=== PATIENT | female | born 1935 | race Caucasian/White ===

== ENCOUNTER 2017-01-13 14:43 | Inpatient (IN) | payer MEDICARE, OTHER ==
[~2017-01-13] VITALS: Ht 157.5 cm; Wt 42.8 kg
[~2017-01-13 14:43] MED LIST: A20IH1 IH; ACET-2247 PO; ACET500I PO; ALBU2TAB42 PO; APIX2.5T PO; ASPI81 PO; AZIT250T6 PO; DSS100 PO; ETHA400 PO; IPRNEB IH; LACT30L PO; MEGE40 PO; METO50 PO; MOM30 PO; NYST5L PO; ONDA4 IV; PANT40I IV; PRED20 PO
[2017-01-13 15:38] LABS: BASOPHILS % (AUTO) 0.3 % (0.0-2.0); EOSINOPHILS % (AUTO) 0.2 % (1.0-6.0); HEMATOCRIT 34.1 % (36-46); LYMPHOCYTES # (AUTO) 0.3 K/uL (1.0-4.8); LYMPHOCYTES % (AUTO) 2.5 % (22.0-44.0); MEAN CORPUSCULAR HEMOGLOBIN 32.5 pg (26.0-34.0); MEAN CORPUSCULAR HGB CONC 32.3 G/dL (31.0-37.0); MEAN CORPUSCULAR VOLUME 101 fL (80-100); MONOCYTES # (AUTO) 0.1 K/uL (0.1-1.0); MONOCYTES % (AUTO) 1.1 % (2.0-9.0); NEUTROPHILS # (AUTO) 9.9 K/uL (1.8-7.7); PLATELET COUNT (AUTO) 467 K/uL (150-450); RED BLOOD CELL COUNT(AUTO) 3.38 MIL/uL (4.00-5.20); RED CELL DISTRIBUTION WIDTH 14.8 % (11.5-14.5); WHITE BLOOD COUNT (AUTO) 10.4 K/uL (4.5-11.0)
[2017-01-13 15:39] LABS: NEUTROPHILS % (AUTO) 95.9 % (40.0-70.0)
[2017-01-13 15:47] LABS: ANION GAP 2 mmol/L (8-16); CARBON DIOXIDE 38 mmol/L (22-29); CHLORIDE 103 mmol/L (98-107); CREATININE 0.46 mg/dL (0.60-1.30); GLOMERULAR FILTR. RATE CALC > 60 mL/min (>60); POTASSIUM 5.5 mmol/L (3.5-5.1); SODIUM SERUM 143 mmol/L (136-145); UREA NITROGEN, BLOOD 15 mg/dL (7-18)
[2017-01-13 15:53] LABS: ALANINE AMINOTRANSFERASE 20 U/L (12-78); ALBUMIN 2.6 g/dL (3.4-5.0); ASPARTATE AMINOTRANSFERASE 14 U/L (15-37); BILIRUBIN,TOTAL 0.3 mg/dL (0.1-1.0); CREATINE KINASE, TOTAL 23 U/L (26-192)
[2017-01-13 15:57] LABS: B-TYPE NATRIURETIC PEPTIDE 932 pg/mL (0-100)
[2017-01-13] MEDS ORDERED: ACET250T27 PO (16:36)
[2017-01-13] MEDS ORDERED: ACETAMINOPHEN 325 MG TABLET PO PRN ×2 (16:45→20:00)
[2017-01-13] MEDS ORDERED: ONDANSETRON HCL 4 MG/2 ML VIAL IVP PRN ×2 (16:45→20:00)
[2017-01-13 16:53] LABS: RBC MORPHOLOGY COMMENT ABNORMAL RBC MORPH
[2017-01-13 18:23] VITALS: BP 113/59
[2017-01-13] MEDS ORDERED: IPRATROPIUM BROMIDE 0.5 MG/2.5 ML NEB SOLUTION NEB SCH (19:00)
[2017-01-13] MEDS ORDERED: ALBUTEROL SULFATE 2.5 MG/0.5 ML NEB SOLUTION NEB SCH (19:00)
[2017-01-13 19:42] VITALS: BP 110/65
[2017-01-13] MEDS ORDERED: IPRATROPIUM BROMIDE 0.5 MG/2.5 ML NEB SOLUTION NEB PRN (20:00)
[2017-01-13] MEDS ORDERED: ALBUTEROL SULFATE 2.5 MG/0.5 ML NEB SOLUTION NEB PRN (20:00)
[2017-01-13] MEDS: DOCUSATE SODIUM 100 MG CAPSULE PO SCH (21:01)
[2017-01-13] MEDS: FUROSEMIDE 20 MG/2 ML VIAL IVP SCH (21:01)
[2017-01-13] MEDS: HEPARIN SODIUM,PORCINE 5,000 UNITS/ML VIAL SQ SCH (21:02)
[2017-01-13 23:40] VITALS: BP 105/53
[2017-01-14 04:36] VITALS: BP 123/61
[2017-01-14 07:25] VITALS: BP 124/72
[2017-01-14 09:20] LABS: INR 1.1 (0.9-1.1); PROTHROMBIN TIME 11.4 SEC (9.4-11.6)
[2017-01-14 09:31] LABS: TOTAL PROTEIN, SERUM 6.3 g/dL (6.4-8.2)
[2017-01-14 12:22] VITALS: BP 138/75
[2017-01-14 13:21] LABS: APPEARANCE,UNSPUN,BODY FLUID HAZY (CLEAR)
[2017-01-14 13:22] LABS: COLOR,BODY FLUID YELLOW (LT YELLOW)
[2017-01-14] MEDS: FUROSEMIDE 20 MG/2 ML VIAL IVP SCH (14:01)
[2017-01-14] MEDS: DOCUSATE SODIUM 100 MG CAPSULE PO SCH ×2 (14:01→20:25)
[2017-01-14] MEDS: HEPARIN SODIUM,PORCINE 5,000 UNITS/ML VIAL SQ SCH ×2 (14:01→20:25)
[2017-01-14] MEDS: PANTOPRAZOLE SODIUM 40 MG/VIAL IVP SCH (14:01)
[2017-01-14 15:16] VITALS: BP 141/72
[2017-01-14 19:23] VITALS: BP 114/69
[2017-01-14] MEDS: OXYGEN THERAPY IH SCH (20:25)
[2017-01-14 23:42] VITALS: BP 128/70
[2017-01-15 05:58] VITALS: BP 135/89
[2017-01-15 07:10] VITALS: BP 132/65
[2017-01-15] MEDS: OXYGEN THERAPY IH SCH ×2 (10:11→20:51)
[2017-01-15] MEDS: FUROSEMIDE 20 MG/2 ML VIAL IVP SCH (10:12)
[2017-01-15] MEDS: DOCUSATE SODIUM 100 MG CAPSULE PO SCH ×2 (10:13→20:56)
[2017-01-15] MEDS: PANTOPRAZOLE SODIUM 40 MG/VIAL IVP SCH (10:13)
[2017-01-15] MEDS: HEPARIN SODIUM,PORCINE 5,000 UNITS/ML VIAL SQ SCH ×2 (10:14→20:56)
[2017-01-15 10:16] LABS: BASOPHILS % (AUTO) 0.6 % (0.0-2.0); EOSINOPHILS % (AUTO) 0.3 % (1.0-6.0); HEMATOCRIT 33.3 % (36-46); HEMOGLOBIN 10.9 g/dL (12.0-16.0); LYMPHOCYTES # (AUTO) 0.4 K/uL (1.0-4.8); LYMPHOCYTES % (AUTO) 3.8 % (22.0-44.0); MEAN CORPUSCULAR HEMOGLOBIN 32.9 pg (26.0-34.0); MEAN CORPUSCULAR HGB CONC 32.9 G/dL (31.0-37.0); MEAN CORPUSCULAR VOLUME 100 fL (80-100); MONOCYTES # (AUTO) 0.6 K/uL (0.1-1.0); MONOCYTES % (AUTO) 6.2 % (2.0-9.0); NEUTROPHILS # (AUTO) 8.7 K/uL (1.8-7.7); PLATELET COUNT (AUTO) 476 K/uL (150-450); RED BLOOD CELL COUNT(AUTO) 3.33 MIL/uL (4.00-5.20); WHITE BLOOD COUNT (AUTO) 9.8 K/uL (4.5-11.0)
[2017-01-15 10:17] LABS: NEUTROPHILS % (AUTO) 89.1 % (40.0-70.0)
[2017-01-15 10:31] LABS: ANION GAP -2 mmol/L (8-16); CHLORIDE 101 mmol/L (98-107); CREATININE 0.41 mg/dL (0.60-1.30); GLOMERULAR FILTR. RATE CALC > 60 mL/min (>60); POTASSIUM 4.7 mmol/L (3.5-5.1); SODIUM SERUM 144 mmol/L (136-145); UREA NITROGEN, BLOOD 16 mg/dL (7-18)
[2017-01-15 10:47] LABS: CARBON DIOXIDE 45 mmol/L (22-29)
[2017-01-15 11:22] VITALS: BP 125/68
[2017-01-15 15:29] VITALS: BP 127/69
[2017-01-15] MEDS ORDERED: METOPROLOL TARTRATE 50 MG TABLET PO SCH (15:30)
[2017-01-15] MEDS ORDERED: METOPROLOL TARTRATE 50 MG TABLET PO ONE (15:30)
[2017-01-15] MEDS ORDERED: APIXABAN 2.5 MG TABLET PO SCH ×2 (15:30→21:00)
[2017-01-15] MEDS: AZITHROMYCIN 250 MG TABLET PO SCH (15:44)
[2017-01-15 19:31] VITALS: BP 94/62
[2017-01-15] MEDS: METOPROLOL TARTRATE 50 MG TABLET PO SCH (20:56)
[2017-01-15] MEDS: ETHAMBUTOL HCL 400 MG TABLET PO SCH (20:56)
[2017-01-15 21:03] LABS: TOTAL PROTEIN,BODY FLUID,REF 1.3 g/dL
[2017-01-15 23:15] VITALS: BP 112/70
[2017-01-16 04:11] VITALS: BP 122/76
[2017-01-16 07:21] VITALS: BP 127/77
[2017-01-16] MEDS: OXYGEN THERAPY IH SCH ×2 (08:28→20:01)
[2017-01-16] MEDS: FUROSEMIDE 20 MG/2 ML VIAL IVP SCH (08:30)
[2017-01-16] MEDS: DOCUSATE SODIUM 100 MG CAPSULE PO SCH ×2 (08:31→20:01)
[2017-01-16] MEDS: PANTOPRAZOLE SODIUM 40 MG/VIAL IVP SCH (08:31)
[2017-01-16] MEDS: AZITHROMYCIN 250 MG TABLET PO SCH (08:32)
[2017-01-16] MEDS: ETHAMBUTOL HCL 400 MG TABLET PO SCH ×2 (08:32→20:01)
[2017-01-16] MEDS: METOPROLOL TARTRATE 50 MG TABLET PO SCH ×2 (08:32→20:01)
[2017-01-16] MEDS: MAGNESIUM HYDROXIDE SUSPENSION 30 ML UDCUP PO PRN (08:34)
[2017-01-16] MEDS: HEPARIN SODIUM,PORCINE 5,000 UNITS/ML VIAL SQ SCH ×2 (08:34→20:01)
[2017-01-16 11:49] VITALS: BP 109/68
[2017-01-16 16:09] VITALS: BP 119/68
[2017-01-16 19:38] VITALS: BP 116/67
[2017-01-16 23:28] VITALS: BP 126/77
[2017-01-17 04:00] VITALS: BP 134/82
[2017-01-17] MEDS ORDERED: LIDOCAINE HCL/PF 2% 5 ML VIAL IM ONE (05:25)
[2017-01-17] MEDS ORDERED: METOCLOPRAMIDE HCL 5 MG/ML 2 ML VIAL IVP ONE (05:25)
[2017-01-17] MEDS ORDERED: ONDANSETRON HCL 4 MG/2 ML VIAL IVP ONE (05:25)
[2017-01-17] MEDS ORDERED: FentaNYL CITRATE-PF 100 MCG/2 ML VIAL IVP ONE (05:25)
[2017-01-17] MEDS ORDERED: PROPOFOL 1% 20 ML VIAL IVP ONE (05:25)
[2017-01-17 08:24] VITALS: BP 134/70
[2017-01-17 08:51] LABS: BASOPHILS % (AUTO) 0.8 % (0.0-2.0); EOSINOPHILS # (AUTO) 0.07 K/uL (0.00-0.70); EOSINOPHILS % (AUTO) 0.63 % (1.0-6.0); HEMATOCRIT 35.8 % (36-46); HEMOGLOBIN 11.4 g/dL (12.0-16.0); LYMPHOCYTES # (AUTO) 0.4 K/uL (1.0-4.8); LYMPHOCYTES % (AUTO) 3.4 % (22.0-44.0); MEAN CORPUSCULAR HEMOGLOBIN 32.9 pg (26.0-34.0); MEAN CORPUSCULAR HGB CONC 31.9 G/dL (31.0-37.0); MEAN CORPUSCULAR VOLUME 103 fL (80-100); MONOCYTES # (AUTO) 0.9 K/uL (0.1-1.0); MONOCYTES % (AUTO) 7.7 % (2.0-9.0); NEUTROPHILS # (AUTO) 10.4 K/uL (1.8-7.7); PLATELET COUNT (AUTO) 381 K/uL (150-450); RED BLOOD CELL COUNT(AUTO) 3.47 MIL/uL (4.00-5.20); RED CELL DISTRIBUTION WIDTH 14.7 % (11.5-14.5); WHITE BLOOD COUNT (AUTO) 11.9 K/uL (4.5-11.0)
[2017-01-17 08:52] LABS: NEUTROPHILS % (AUTO) 87.4 % (40.0-70.0)
[2017-01-17] MEDS: ETHAMBUTOL HCL 400 MG TABLET PO SCH ×2 (09:00→20:00)
[2017-01-17] MEDS: METOPROLOL TARTRATE 50 MG TABLET PO SCH ×2 (09:00→20:00)
[2017-01-17] MEDS: DOCUSATE SODIUM 100 MG CAPSULE PO SCH ×2 (09:00→20:00)
[2017-01-17] MEDS: HEPARIN SODIUM,PORCINE 5,000 UNITS/ML VIAL SQ SCH ×2 (09:00→20:00)
[2017-01-17 09:01] LABS: INR 1.1 (0.9-1.1); PROTHROMBIN TIME 11.3 SEC (9.4-11.6)
[2017-01-17] MEDS: OXYGEN THERAPY IH SCH ×4 (09:07→19:59)
[2017-01-17] MEDS: PANTOPRAZOLE SODIUM 40 MG/VIAL IVP SCH (09:11)
[2017-01-17] MEDS: FUROSEMIDE 20 MG/2 ML VIAL IVP SCH (09:18)
[2017-01-17 09:50] LABS: RBC MORPHOLOGY COMMENT ABNORMAL RBC MORPH
[2017-01-17] MEDS ORDERED: SODIUM CHLORIDE 0.9% 1,000 ML IV ONE ×2 (11:08→11:30)
[2017-01-17 11:32] VITALS: BP 133/93
[2017-01-17] MEDS ORDERED: LIDOCAINE HCL/PF 1% 30 ML VIAL ONE (11:48)
[2017-01-17] MEDS ORDERED: KETAMINE HCL 50 MG/ML 10 ML VIAL ONE (12:10)
[2017-01-17] MEDS ORDERED: PROPOFOL 1000 MG/ISO-OSM 100 ML IV ONE (12:10)
[2017-01-17] MEDS ORDERED: FentaNYL CITRATE-PF 100 MCG/2 ML VIAL IVP PRN (12:45)
[2017-01-17] MEDS ORDERED: SODIUM CHLORIDE 0.9% 500 ML IV ONE (14:45)
[2017-01-17 16:25] VITALS: BP 116/71
[2017-01-17] MEDS: MULTIVITAMINS WITH MINERALS, THERAPEUTIC TABLET PO SCH (17:16)
[2017-01-17] MEDS: AZITHROMYCIN 250 MG TABLET PO SCH (17:16)
[2017-01-17 19:33] VITALS: BP 137/76
[2017-01-17 23:53] VITALS: BP 125/74
[2017-01-18 04:45] VITALS: BP 136/92
[2017-01-18 07:15] VITALS: BP 144/95
[2017-01-18] MEDS: OXYGEN THERAPY IH SCH ×4 (08:00→20:50)
[2017-01-18] MEDS: FUROSEMIDE 20 MG/2 ML VIAL IVP SCH (08:46)
[2017-01-18] MEDS: AZITHROMYCIN 250 MG TABLET PO SCH (08:46)
[2017-01-18] MEDS: METOPROLOL TARTRATE 50 MG TABLET PO SCH ×2 (08:46→19:54)
[2017-01-18] MEDS: HEPARIN SODIUM,PORCINE 5,000 UNITS/ML VIAL SQ SCH ×2 (08:46→19:55)
[2017-01-18] MEDS: MULTIVITAMINS WITH MINERALS, THERAPEUTIC TABLET PO SCH (08:46)
[2017-01-18] MEDS: ETHAMBUTOL HCL 400 MG TABLET PO SCH ×2 (08:46→19:55)
[2017-01-18] MEDS: PANTOPRAZOLE SODIUM 40 MG/VIAL IVP SCH (08:46)
[2017-01-18] MEDS: DOCUSATE SODIUM 100 MG CAPSULE PO SCH ×2 (08:46→19:55)
[2017-01-18] MEDS: MAGNESIUM HYDROXIDE SUSPENSION 30 ML UDCUP PO PRN (08:47)
[2017-01-18 12:00] VITALS: BP 126/64
[2017-01-18] MEDS ORDERED: HEPA500017 SQ (15:29)
[2017-01-18] MEDS ORDERED: MULT-685 PO (15:36)
[2017-01-18] MEDS ORDERED: ACET-784 PO (15:37)
[2017-01-18] MEDS ORDERED: ONDA4 PO (15:38)
[2017-01-18] MEDS ORDERED: MOM30 PO (15:38)
[2017-01-18 15:43] VITALS: BP 118/71
[2017-01-18 19:31] VITALS: BP 117/75
[2017-01-18 23:27] VITALS: BP 120/67
[2017-01-19 04:00] VITALS: BP 130/86
[2017-01-19 07:29] VITALS: BP 152/81
[2017-01-19] MEDS: OXYGEN THERAPY IH SCH ×2 (08:00→08:25)
[2017-01-19] MEDS: PANTOPRAZOLE SODIUM 40 MG/VIAL IVP SCH (08:25)
[2017-01-19] MEDS: MULTIVITAMINS WITH MINERALS, THERAPEUTIC TABLET PO SCH (08:26)
[2017-01-19] MEDS: DOCUSATE SODIUM 100 MG CAPSULE PO SCH (08:26)
[2017-01-19] MEDS: ETHAMBUTOL HCL 400 MG TABLET PO SCH (08:26)
[2017-01-19] MEDS: FUROSEMIDE 20 MG/2 ML VIAL IVP SCH (08:26)
[2017-01-19] MEDS: HEPARIN SODIUM,PORCINE 5,000 UNITS/ML VIAL SQ SCH (08:26)
[2017-01-19] MEDS: METOPROLOL TARTRATE 50 MG TABLET PO SCH (08:26)
[2017-01-19] MEDS: AZITHROMYCIN 250 MG TABLET PO SCH (08:26)
[2017-01-19 11:16] VITALS: BP 104/70
[2017-01-19 16:00] VITALS: BP 117/73
[2017-01-19] MEDS: MAGNESIUM HYDROXIDE SUSPENSION 30 ML UDCUP PO PRN (18:32)
== END 2017-01-19 19:20 | DRG 186 ==
LOC: EMS 14:51 → 5S 16:37
PROVIDERS: ADMIT Internal Medicine; ATTEND Internal Medicine
PROC: 0W9930Z Drainage of Right Pleural Cavity with Drainage Device, Percutaneous Approach (ICD-10-PCS; principal; 2017-01-17 13:39)
DX: J90 Pleural effusion, not elsewhere classified (principal); E43 Unspecified severe protein-calorie malnutrition; I50.42 Chronic combined systolic (congestive) and diastolic (congestive) heart failure; L89.159 Pressure ulcer of sacral region, unspecified stage; J96.11 Chronic respiratory failure with hypoxia; F03.90 Unspecified dementia, unspecified severity, without behavioral disturbance, psychotic disturbance, mood disturbance, and anxiety; I48.2 Chronic atrial fibrillation; J93.9 Pneumothorax, unspecified; Z68.1 Body mass index [BMI] 19.9 or less, adult; R62.7 Adult failure to thrive; J44.9 Chronic obstructive pulmonary disease, unspecified; E78.00 Pure hypercholesterolemia, unspecified; H91.90 Unspecified hearing loss, unspecified ear; I34.0 Nonrheumatic mitral (valve) insufficiency; M81.0 Age-related osteoporosis without current pathological fracture; Z66 Do not resuscitate; Z86.73 Personal history of transient ischemic attack (TIA), and cerebral infarction without residual deficits; Z74.01 Bed confinement status; Z90.2 Acquired absence of lung [part of]
CPT/HCPCS: 32555; 71250; 76942; 82465; 82945; 83615; 83986; 84155; 84157; 87015; 87070; 87081; 87101; 87205; 88108; 88341; 88342; 89051; 92610; 93005; 94640; 99285; C9113; J0690; J1644; J1940; J2405; J2704; J2765; J3010; J3490; J7030; J7040